=== PATIENT | female | born 2000 | race Caucasian/White ===

== ENCOUNTER 2023-02-23 13:36 | Emergency (ER) | payer OTHER ==
[~2023-02-23] VITALS: Ht 157.5 cm; Wt 83.5 kg
[2023-02-23 13:43] VITALS: BP 142/78; PULSE 98; RESP 18; TEMP 98.5; O2SAT 97
[2023-02-23 14:36] LABS: APPEARANCE,URINE CLOUDY (CLEAR); BILIRUBIN,URINE NEGATIVE (NEGATIVE); BLOOD, URINE 3+ (NEGATIVE); COLOR,URINE OTHER (YELLOW); LEUKOCYTE ESTERASE ,URINE 2+ (NEGATIVE); NITRITE, URINE NEGATIVE (NEGATIVE); PROTEIN,URINE 2+ (NEGATIVE); UGLUCOSE NEGATIVE (NEGATIVE); UROBILINOGEN,URINE 0.2 EU/dL (0.2 - 1)
[2023-02-23 14:58] LABS: BACTERIA,URINE 10-30 (MOD) /HPF (None Seen); RBC,URINE 20-50 /HPF (0-5); SQUAMOUS EPITHELIAL CELL,UR 0-3 (FEW) /LPF (0-3 (FEW))
[2023-02-23] MEDS ORDERED: PYR100 PO (15:24)
[2023-02-23] MEDS ORDERED: NITR100C7 PO (15:24)
[2023-02-23] MEDS ORDERED: IBUP-2213 PO (15:24)
[2023-02-23 15:43] VITALS: BP 135/68; PULSE 98; RESP 18; TEMP 98.5; O2SAT 97
== END 2023-02-23 15:44 | disposition home or self-care (01) ==
LOC: MED 13:36
DX: N39.0 Urinary tract infection, site not specified (principal); R03.0 Elevated blood-pressure reading, without diagnosis of hypertension; Z79.899 Other long term (current) drug therapy; Z79.1 Long term (current) use of non-steroidal anti-inflammatories (NSAID); Z79.2 Long term (current) use of antibiotics
CPT/HCPCS: 81001; 81025; 87086; 99283